=== PATIENT | female | born 1945 | race Caucasian/White ===

== ENCOUNTER 2020-09-22 02:58 | Outpatient (RCR) | payer MEDICARE, OTHER, SELFPAY ==
[2020-09-17] VITALS (7 sets, daily range): BP systolic 147–166; BP diastolic 70–85; PULSE 43–64; RESP 16–18; TEMP 36.5–37.1; O2SAT 96–98
[2020-09-17] MEDS: Normal Saline Flush 10 ML SYR IVP (11:09)
[2020-09-17] MEDS: Loratidine 10 MG TAB PO (11:09)
[2020-09-17] MEDS: Acetaminophen 325 MG TAB 650 MG PO (11:09)
[2020-09-17] MEDS: inFLIXimab 300 MG in Normal Saline 250 ML 125 MG IVPB (11:34)
[2020-09-22] VITALS (7 sets, daily range): BP systolic 121–162; BP diastolic 67–89; PULSE 52–70; RESP 12–20; TEMP 36.5–36.9; O2SAT 97–99
[2020-09-22] MEDS: Acetaminophen 325 MG TAB 650 MG PO (11:10)
[2020-09-22] MEDS: Loratidine 10 MG TAB PO (11:11)
[2020-09-22] MEDS: Normal Saline Flush 10 ML SYR IVP (11:11)
[2020-09-22] MEDS: inFLIXimab 300 MG in Normal Saline 250 ML 125 MG IVPB (11:39)
== END 2020-09-25 23:59 | disposition home or self-care (01) ==
LOC: INF 02:58
PROVIDERS: PCP Nurse Practitioner Family; Visit Provider Family Medicine
DX: K51.00 Ulcerative (chronic) pancolitis without complications (principal)
CPT/HCPCS: 96365; 96366; 96413; 96415; J1745

== ENCOUNTER 2020-10-01 11:00 | Outpatient (RCR) | payer MEDICARE, OTHER, SELFPAY ==
[2020-09-26 00:27] VITALS: BP 121/74; PULSE 69; RESP 12; TEMP 36.6
[2020-10-01] MEDS: Normal Saline Flush 10 ML SYR IVP (11:07)
[2020-10-01] MEDS: Acetaminophen 325 MG TAB 650 MG PO (11:11)
[2020-10-01] MEDS: Loratidine 10 MG TAB PO (11:11)
[2020-10-01 11:27] LABS: HGB 12.2 g/dL (11.2-15.7); MCH 24.9 pg (27.0-33.0); MCHC 30.5 % (32.0-36.0); MCV 81.8 fL (80-95); MPV 10.2 fL (8.0-11.0); Platelet Count 480 10^3/uL (130-400); RBC 4.89 10^6/uL (3.93-5.22); RDW 15.8 % (11.7-14.6); RDW-SD 46.7 fL
[2020-10-01] MEDS: inFLIXimab 300 MG in Normal Saline 250 ML 125 MG IVPB (11:29)
[2020-10-01 11:30] VITALS: BP 128/69; PULSE 52; RESP 16; TEMP 37.1; O2SAT 98
[2020-10-01 11:38] LABS: ALT 37 U/L (14-59); AST 19 U/L (15-37); Albumin 3.4 g/dL (3.4-5.0); Alkaline Phosphatase 51 U/L (46-116); Bilirubin, Direct 0.1 mg/dL (0.0-0.2); Bilirubin, Total 0.4 mg/dL (0.2-1.0); Total Protein 6.7 g/dL (6.4-8.2)
[2020-10-01 11:39] LABS: C-Reactive Protein < 0.05 mg/dL (0.0-0.3)
[2020-10-01 11:44] LABS: WBC 27.27 10^3/uL (4.4-10.8)
[2020-10-01 11:45] VITALS: BP 131/72; PULSE 57; RESP 16; TEMP 36.9; O2SAT 97
[2020-10-01 12:00] VITALS: BP 121/73; PULSE 59; RESP 16; TEMP 37; O2SAT 96
[2020-10-01 12:15] VITALS: BP 145/73; PULSE 65; RESP 16; TEMP 35.9; O2SAT 97
[2020-10-01 12:45] VITALS: BP 121/72; PULSE 65; RESP 16; TEMP 36.6; O2SAT 97
[2020-10-01 13:15] VITALS: BP 106/66; PULSE 71; RESP 16; TEMP 37.1; O2SAT 97
== END 2020-10-26 23:59 | disposition home or self-care (01) ==
LOC: INF 11:00
PROVIDERS: PCP Nurse Practitioner Family; Visit Provider Family Medicine
DX: K50.919 Crohn's disease, unspecified, with unspecified complications (principal)
CPT/HCPCS: 36415; 80076; 85027; 96365; 96366; 96413; 96415; 86140; J1745

== ENCOUNTER 2020-11-05 05:29 | Outpatient (RCR) | payer MEDICARE, OTHER, SELFPAY ==
[2020-10-27 00:12] VITALS: BP 106/66; PULSE 71; RESP 16; TEMP 37.1
[2020-10-29] MEDS: Normal Saline Flush 10 ML SYR IVP (11:21)
[2020-10-29] MEDS: Acetaminophen 325 MG TAB 650 MG PO (11:24)
[2020-10-29] MEDS: Loratidine 10 MG TAB PO (11:24)
[2020-10-29 11:26] VITALS: BP 138/66; PULSE 57; RESP 16; TEMP 36.2; O2SAT 98
[2020-10-29] MEDS: inFLIXimab 300 MG in Normal Saline 250 ML 125 MG IVPB (11:47)
[2020-10-29 12:13] VITALS: BP 128/69; PULSE 52; RESP 18; TEMP 36.1; O2SAT 98
[2020-10-29 12:31] VITALS: BP 150/73; PULSE 65; RESP 16; TEMP 36.4; O2SAT 99
[2020-10-29 12:41] VITALS: BP 133/77; PULSE 56; RESP 16; TEMP 36.4; O2SAT 99
[2020-10-29 12:55] VITALS: BP 116/61; PULSE 60; RESP 17; TEMP 35.9; O2SAT 97
[2020-10-29 13:25] VITALS: BP 114/67; PULSE 63; RESP 17; TEMP 36.1; O2SAT 98
[2020-11-05] MEDS: Acetaminophen 325 MG TAB 650 MG PO (10:47)
[2020-11-05] MEDS: Loratidine 10 MG TAB PO (10:47)
[2020-11-05] MEDS: Normal Saline Flush 10 ML SYR IVP (10:47)
[2020-11-05 10:50] VITALS: BP 149/69; PULSE 71; RESP 16; TEMP 36.3; O2SAT 99
[2020-11-05] MEDS: inFLIXimab 300 MG in Normal Saline 250 ML 125 MG IVPB (11:20)
[2020-11-05 11:40] VITALS: BP 145/76; PULSE 53; RESP 17; TEMP 36.5; O2SAT 97
[2020-11-05 11:55] VITALS: BP 131/66; PULSE 44; RESP 17; TEMP 36.2; O2SAT 98
[2020-11-05 12:10] VITALS: BP 157/86; PULSE 57; RESP 16; TEMP 36.3; O2SAT 97
[2020-11-05 12:25] VITALS: BP 164/78; PULSE 56; RESP 16; TEMP 36; O2SAT 97
[2020-11-05 13:01] VITALS: BP 120/70; PULSE 65; RESP 17; TEMP 36.4; O2SAT 96
== END 2020-11-25 23:59 | disposition home or self-care (01) ==
LOC: INF 05:29
PROVIDERS: PCP Nurse Practitioner Family; Visit Provider Family Medicine
DX: K50.919 Crohn's disease, unspecified, with unspecified complications (principal)
CPT/HCPCS: 96365; 96366; 96413; 96415; J1745

== ENCOUNTER 2020-12-14 11:00 | Outpatient (RCR) | payer MEDICARE, OTHER, SELFPAY ==
[2020-11-26 00:22] VITALS: BP 120/70; PULSE 65; RESP 17; TEMP 36.4
[2020-12-14] VITALS (7 sets, daily range): BP systolic 132–173; BP diastolic 65–84; PULSE 46–68; RESP 16–18; TEMP 36.2–36.7; O2SAT 96–98
[2020-12-14] MEDS: Acetaminophen 325 MG TAB 650 MG PO (11:10)
[2020-12-14] MEDS: Loratidine 10 MG TAB PO (11:10)
[2020-12-14] MEDS: Normal Saline Flush 10 ML SYR IVP (11:12)
[2020-12-14 11:33] LABS: HCT 40.1 % (36.0-46.0); HGB 12.3 g/dL (11.2-15.7); MCH 24.1 pg (27.0-33.0); MCHC 30.7 % (32.0-36.0); MCV 78.6 fL (80-95); MPV 10.5 fL (8.0-11.0); Platelet Count 551 10^3/uL (130-400); RDW 16.1 % (11.7-14.6); RDW-SD 46.2 fL; WBC 21.63 10^3/uL (4.4-10.8)
[2020-12-14] MEDS: inFLIXimab 600 MG in Normal Saline 250 ML 125 MG IVPB (11:35)
[2020-12-14 11:49] LABS: ALT 21 U/L (14-59); AST 11 U/L (15-37); Albumin 3.3 g/dL (3.4-5.0); Alkaline Phosphatase 54 U/L (46-116); Bilirubin, Direct < 0.1 mg/dL (0.0-0.2); Bilirubin, Total 0.3 mg/dL (0.2-1.0); C-Reactive Protein 0.16 mg/dL (0.0-0.3); Total Protein 6.9 g/dL (6.4-8.2)
== END 2020-12-26 23:59 | disposition home or self-care (01) ==
LOC: INF 11:00
PROVIDERS: PCP Nurse Practitioner Family; Visit Provider Family Medicine
DX: K50.919 Crohn's disease, unspecified, with unspecified complications (principal)
CPT/HCPCS: 36415; 80076; 85027; 96365; 96366; 96413; 96415; 86140; J1745

== ENCOUNTER 2021-01-11 08:42 | Outpatient (RCR) | payer MEDICARE, OTHER, SELFPAY ==
[2020-12-27 00:24] VITALS: BP 132/69; PULSE 68; RESP 18; TEMP 36.2
[2021-01-11] MEDS: Normal Saline Flush 10 ML SYR IVP (10:52)
[2021-01-11] MEDS: Acetaminophen 325 MG TAB 650 MG PO (10:52)
[2021-01-11] MEDS: Loratidine 10 MG TAB PO (10:52)
[2021-01-11 11:01] VITALS: BP 152/94; PULSE 60; RESP 16; TEMP 36.7; O2SAT 98
[2021-01-11] MEDS: inFLIXimab 600 MG in Normal Saline 250 ML 125 MG IVPB (11:29)
[2021-01-11 11:45] VITALS: BP 138/73; PULSE 60; RESP 18; TEMP 36.7; O2SAT 98
[2021-01-11 12:00] VITALS: BP 132/77; PULSE 58; RESP 16; TEMP 36.7; O2SAT 97
[2021-01-11 12:18] VITALS: BP 138/96; PULSE 62; RESP 17; TEMP 35.8; O2SAT 97
[2021-01-11 12:50] VITALS: BP 136/81; PULSE 71; RESP 17; TEMP 35.8; O2SAT 97
== END 2021-01-25 23:59 | disposition home or self-care (01) ==
LOC: INF 08:42
PROVIDERS: PCP Nurse Practitioner Family; Visit Provider Family Medicine
DX: K50.90 Crohn's disease, unspecified, without complications (principal); Z79.899 Other long term (current) drug therapy
CPT/HCPCS: 96365; 96366; 96413; 96415; J1745

== ENCOUNTER 2021-02-09 11:00 | Outpatient (RCR) | payer MEDICARE, OTHER, SELFPAY ==
[2021-01-26 00:07] VITALS: BP 136/81; PULSE 71; RESP 17; TEMP 35.8
[2021-02-09] MEDS: Loratidine 10 MG TAB PO (11:05)
[2021-02-09] MEDS: Acetaminophen 325 MG TAB 650 MG PO (11:05)
[2021-02-09] MEDS: Normal Saline Flush 10 ML SYR IVP (11:07)
[2021-02-09 11:13] VITALS: BP 161/68; PULSE 55; RESP 17; TEMP 36; O2SAT 95
[2021-02-09 11:15] LABS: HCT 42.1 % (36.0-46.0); HGB 12.6 g/dL (11.2-15.7); MCH 23.5 pg (27.0-33.0); MCHC 29.9 % (32.0-36.0); MCV 78.5 fL (80-95); MPV 10.1 fL (8.0-11.0); RBC 5.36 10^6/uL (3.93-5.22); RDW 16.2 % (11.7-14.6); RDW-SD 46.2 fL; WBC 19.54 10^3/uL (4.4-10.8)
[2021-02-09 11:32] LABS: ALT 28 U/L (14-59); AST 18 U/L (15-37); Albumin 3.5 g/dL (3.4-5.0); Alkaline Phosphatase 67 U/L (46-116); Bilirubin, Total 0.2 mg/dL (0.2-1.0); Total Protein 7.8 g/dL (6.4-8.2)
[2021-02-09 11:38] LABS: Platelet Count 771 10^3/uL (130-400)
[2021-02-09] MEDS: inFLIXimab 600 MG in Normal Saline 250 ML 125 MG IVPB (11:38)
[2021-02-09 11:40] LABS: Bilirubin, Direct 0.1 mg/dL (0.0-0.2); C-Reactive Protein 0.32 mg/dL (0.0-0.3)
[2021-02-09 11:58] VITALS: BP 142/84; PULSE 59; RESP 16; TEMP 36.1; O2SAT 98
[2021-02-09 12:14] VITALS: BP 116/68; PULSE 54; RESP 16; TEMP 36; O2SAT 96
[2021-02-09 12:31] VITALS: BP 116/64; PULSE 71; RESP 16; TEMP 36.3; O2SAT 96
[2021-02-09 12:48] VITALS: BP 164/71; PULSE 64; RESP 17; TEMP 36.4; O2SAT 96
[2021-02-09 13:18] VITALS: BP 172/89; PULSE 73; RESP 18; TEMP 36.2; O2SAT 97
== END 2021-02-25 23:59 | disposition home or self-care (01) ==
LOC: INF 11:00
PROVIDERS: PCP Nurse Practitioner Family; Visit Provider Family Medicine
DX: K50.90 Crohn's disease, unspecified, without complications (principal)
CPT/HCPCS: 36415; 80076; 85027; 96365; 96366; 96413; 96415; 86140; J1745

== ENCOUNTER 2021-02-09 13:31 | Emergency (ER) | payer MEDICARE, OTHER, SELFPAY ==
[2021-02-09] VITALS (41 sets, daily range): BP systolic 126–193; BP diastolic 61–138; PULSE 60–101; RESP 13–37; TEMP 36.6–37.6; O2SAT 82–95
--- NOTE | 2021-02-09 13:30 | DI.CT_ITS ---
Exam(s) CT THORAX ABDOMEN CTA EXAM: CT THORAX ABDOMEN CTA CLINICAL HISTORY: back and chest pain. TECHNIQUE: Imaging Protocol: Axial computed tomography images with coronal and sagittal reformatted images were created and reviewed CONTRAST MATERIAL: Intravenous: Omnipaque 350 Contrast volume:100 ml Oral: None COMPARISON: No exams were available for comparison FINDINGS: CHEST: AORTA: There is no evidence of aortic dissection nor pericardial effusion. Diameter of the ascending thoracic aorta is within normal limits. Diameter of the aortic arch is upper normal. Diameter of t he descending thoracic aorta is upper normal. There is no evidence of abdominal aortic aneurysm. No fusiform aneurysms in the iliac arteries. No tight stenosis nor dissection seen in the common visua lized external iliac arteries. The entire pelvis is not included in the field of view. Both interna l iliac arteries are patent. OSSEOUS: There is a mild height loss of T8 vertebral body, possibly mild compression fracture, age in determinate. No other compression fractures. There is mild anterolisthesis of L4 upon L5, this on a degenerative basis/facet arthropathy. There are no pars defects. LUNGS: No confluent infiltrates nor pleural effusions. No ominous pulmonary nodules. No pneumothora x.. MEDIASTINUM: There is no hilar nor mediastinal adenopathy. Visualized thyroid unremarkable. CARDIAC: Heart size upper normal. No pericardial effusion. No dissection. See above. AORTA: See above. ABDOMEN: There is no evidence of abdominal aortic aneurysm nor dissection.Celiac and superior mesenteric arter ies are patent. No tight ostial stenosis of these vessels. No evidence of embolus in the SMA. Infe rior mesenteric artery is also patent.There is no evidence of significant stenosis at the level of th e single bilateral renal arteries. There is no ascites. LIVER: There are no focal hepatic lesions nor dilatation of intrahepatic ducts. GALLBLADDER/BILIARY: Gallbladder surgically absent. CBD diameter is increased, consistent with the p atient's age and post cholecystectomy status. PANCREAS: No evidence of pancreatic mass nor dilatation of the pancreatic duct. Pancreas is difficult to evaluate accurately because of respiratory motion artifact. Pancreatic duct diameter is upper normal. There is no obvious pancreatic mass. SPLEEN: The spleen exhibits normal size. No splenic masses evident. ADRENALS: There are no significant adrenal masses. KIDNEYS: No cysts evident. No calculi nor hydronephrosis. No solid renal masses. ABDOMINAL AORTA: As above. Not enlarged. LYMPH NODES: There is no retroperitoneal nor para-aortic adenopathy. No obvious mesenteric masses. ABDOMINAL WALL: No evidence of significant anterior abdominal wall hernia. GI: No evidence of obvious bowel obstruction. No free air. Lowermost image of this study is midpelvic level. The entire pelvis is not included on this chest ab domen study. Uterus and ovaries are not included in the field of view. IMPRESSION: 1. No evidence of aortic aneurysm nor aortic dissection. No pericardial effusion. 2. There is a mild T8 vertebral body compression fracture, age indeterminate. No compromise of the c anal. No retropulsed fragments. Also noted is mild degenerative anterolisthesis L4 upon L5, this re lated to facet arthropathy. 3. Gallbladder surgically absent. Prominence of the CBD is most probably related to the patient's ag e and post cholecystectomy status. 4. Pancreas difficult to evaluate accurately because of respiratory motion artifact on this study. Findings discussed with ER physician. RADIATION DOSE DELIVERED: 615.37mGy.cm Total DLP DATA REPOSITORY: All CT scans at this facility are submitted to the National Radiology Data Registry (NRDR) Dose Index Registry (DIR) with the [employer] (A[employer]). RADIATION OPTIMIZATION: All CT scans at this facility use at least one of these dose optimization te chniques: automated exposure control; mA and/or kV adjustment per patient size (includes targeted exa ms where dose is matched to clinical indication); or iterative reconstruction.
--- NOTE | 2021-02-09 13:30 | RT.EKG_ITS ---
APPROVED REPORT Exam: Resting ECG Reason for Exam: chest pain Patient Location: E HR:100 bpm ECG Measurements Heart Rate 100 AXIS AL 182 P 73 QRSd 97 QRS -39 QT 363 T -12 QTc 467 Conclusion Sinus tachycardia...rate> 99 Left axis deviation...QRS axis (-30,-90) Anterior infarct, possibly acute...ST >0.15mV, upright T, V2-V5 sinus tachycardia at 100, borderline left axis, significant artifact present, possible ST elevation
[2021-02-09] MEDS: Normal Saline Flush 10 ML SYR IVP (13:39)
[2021-02-09 13:50] LABS: HCT 41.2 % (36.0-46.0); HGB 12.3 g/dL (11.2-15.7); MCH 23.3 pg (27.0-33.0); MCHC 29.9 % (32.0-36.0); MCV 78.2 fL (80-95); MPV 10.2 fL (8.0-11.0); Nucleated RBC 0 %; Platelet Count 674 10^3/uL (130-400); RBC 5.27 10^6/uL (3.93-5.22); RDW-SD 45.6 fL
[2021-02-09] MEDS: HYDROmorphone 2 MG/ML VIAL (13:53)
[2021-02-09] MEDS: Labetalol 100 MG/20 ML VIAL 20 MG IVP (13:53)
--- NOTE | 2021-02-09 14:02 | W.ED.GENAD ---
Discharge Plan Disposition Patient Disposition: HOME Condition: Stable Discharge Details Clinical Impression: Compression fracture, Muscle spasm Primary Care Provider: Donna Rodas ED Provider: Ryan Powell Home Meds and New Rx's Prescriptions: New cyclobenzaprine 5 mg tablet 5 mg PO BID PRN (Reason: muscle spasm) Qty: 14 RF: 0 Continued prednisone 20 mg tablet 10 mg PO BID RF: 0 atenolol 25 mg tablet 25 mg PO DAILY RF: 0 calcium-vitamin D3 250-50 mg-unit Tablet 1 tab PO DAILY RF: 0 Discharge Instructions Instructions: Vertebral Compression Fracture (ED), Muscle Spasm (ED) Additional Instructions: CTA of your chest and abdomen revealed incidental finding of chronic compression fracture of thoracic vertebrae #8. Please discuss this finding with your doctor in follow-up. Please contact your primary care physician to arrange follow-up. Return to the ER for any worsening or new concerning symptoms. Referrals: Donna Rodas [Primary Care Provider] - Discharge Data Discharge Date/Time-TO BE ENTERED AT DEPARTURE: 02/09/21 17:28 Medical Decision Making <Maru Powell MD - Last Filed: 02/14/21 09:14> Jessica Lima is a 75-year-old woman with a history of Crohn's disease who was receiving a Remicade infusion when she developed gradual onset severe low back pain radiating to the chest and neck. Now reporting severe pain and unable to do so secondary to pain. On exam patient is nontoxic-appearing but appears extremely uncomfortable. Benign cardiopulmonary exam. No apparent neurologic deficit, no abdominal tenderness to palpation. Given severity and distribution of pain concern for possible aortic pathology versus musculoskeletal pain versus acute coronary syndrome versus other. EKG obtained, IV in place. Plan for CTA thorax/abdomen, screening labs, telemetry, IV pain medication. Will monitor and reassess. Patient reports no improvement after 4 mg IV morphine. Will give 0.5 mg Dilaudid. Patient reports reduction in pain after Dilaudid. CTA resulted as negative for acute process per radiology. Labs reviewed, WBC 15, troponin negative. Patient reports feeling significantly improved after returning from CT scan. She denies any chest pain or neck pain, reports mild low back pain at this time. Unclear etiology of leukocytosis, possible stress reaction versus other. Plan for repeat troponin, will continue to monitor. Exam/history at this time not consistent with acute intra-abdominal process, pulmonary embolism, acute emergent vascular pathology, sepsis. Patient reports feeling completely pain-free and back to baseline. She has no symptoms at this time. I did discuss nonacute findings of CT with patient (T8 compression fracture, anterolisthesis and lumbar spine), discussed that these may be contributing to her reported prior history of low back pain/muscle spasms. Awaiting repeat troponin. Patient signed out to Dr. Ryan Powell at time of shift change with repeat lab, reassessment pending. Medical Records Medical records reviewed: Yes I reviewed the patient's medical records. Imaging Data Radiologic Study: Attestation: I personally reviewed and interpreted this imaging study as follows: Radiologist's impression: EXAM: CT THORAX ABDOMEN CTA CLINICAL HISTORY: back and chest pain. TECHNIQUE: Imaging Protocol: Axial computed tomography images with coronal and sagittal reformatted images were created and reviewed CONTRAST MATERIAL: Intravenous: Omnipaque 350 Contrast volume:100 ml Oral: None COMPARISON: No exams were available for comparison FINDINGS: CHEST: AORTA: There is no evidence of aortic dissection nor pericardial effusion. Diameter of the ascending thoracic aorta is within normal limits. Diameter of the aortic arch is upper normal. Diameter of the descending thoracic aorta is upper normal. There is no evidence of abdominal aortic aneurysm. No fusiform aneurysms in the iliac arteries. No tight stenosis nor dissection seen in the common visualized external iliac arteries. The entire pelvis is not included in the field of view. Both internal iliac arteries are patent. OSSEOUS: There is a mild height loss of T8 vertebral body, possibly mild compression fracture, age indeterminate. No other compression fractures. There is mild anterolisthesis of L4 upon L5, this on a degenerative basis/facet arthropathy. There are no pars defects. LUNGS: No confluent infiltrates nor pleural effusions. No ominous pulmonary nodules. No pneumothorax.. MEDIASTINUM: There is no hilar nor mediastinal adenopathy. Visualized thyroid unremarkable. CARDIAC: Heart size upper normal. No pericardial effusion. No dissection. See above. AORTA: See above. ABDOMEN: There is no evidence of abdominal aortic aneurysm nor dissection.Celiac and superior mesenteric arteries are patent. No tight ostial stenosis of these vessels. No evidence of embolus in the SMA. Inferior mesenteric artery is also patent.There is no evidence of significant stenosis at the level of the single bilateral renal arteries. There is no ascites. LIVER: There are no focal hepatic lesions nor dilatation of intrahepatic ducts. GALLBLADDER/BILIARY: Gallbladder surgically absent. CBD diameter is increased, consistent with the patient's age and post cholecystectomy status. PANCREAS: No evidence of pancreatic mass nor dilatation of the pancreatic duct. Pancreas is difficult to evaluate accurately because of respiratory motion artifact. Pancreatic duct diameter is upper normal. There is no obvious pancreatic mass. SPLEEN: The spleen exhibits normal size. No splenic masses evident. ADRENALS: There are no significant adrenal masses. KIDNEYS: No cysts evident. No calculi nor hydronephrosis. No solid renal masses. ABDOMINAL AORTA: As above. Not enlarged. LYMPH NODES: There is no retroperitoneal nor para-aortic adenopathy. No obvious mesenteric masses. ABDOMINAL WALL: No evidence of significant anterior abdominal wall hernia. GI: No evidence of obvious bowel obstruction. No free air. Lowermost image of this study is midpelvic level. The entire pelvis is not included on this chest abdomen study. Uterus and ovaries are not included in the field of view. IMPRESSION: 1. No evidence of aortic aneurysm nor aortic dissection. No pericardial effusion. 2. There is a mild T8 vertebral body compression fracture, age indeterminate. No compromise of the canal. No retropulsed fragments. Also noted is mild degenerative anterolisthesis L4 upon L5, this related to facet arthropathy. 3. Gallbladder surgically absent. Prominence of the CBD is most probably related to the patient's age and post cholecystectomy status. 4. Pancreas difficult to evaluate accurately because of respiratory motion artifact on this study. Lab Data Lab results reviewed: Yes I reviewed the patient's lab results. Labs: Laboratory Tests Range/Units 02/09/21 02/09/21 02/09/21 13:40 13:40 13:40 WBC (4.4-10.8) 10^3/uL 15.00 H RBC (3.93-5.22) 10^6/uL 5.27 H Hgb (11.2-15.7) g/dL 12.3 Hct (36.0-46.0) % 41.2 MCV (80-95) fL 78.2 L MCH (27.0-33.0) pg 23.3 L MCHC (32.0-36.0) % 29.9 L RDW (11.7-14.6) % 16.0 H Plt Count (130-400) 10^3/uL 674 H MPV (8.0-11.0) fL 10.2 Immature Gran % 0.0 Neutrophils % 81.0 Band Neutrophils % 2 Lymphocytes % 10.0 Atypical Lymphs % 4 Monocytes % 1.0 Eosinophils % 1.0 Basophils % 0.0 Metamyelocytes % 1 Nucleated RBC % % 0 Absolute Neutrophils (1.2-6.7) 10^3/uL 12.45 H Absolute Lymphocytes (1.2-3.4) 10^3/uL 2.10 Absolute Monocytes (0.1-0.8) 10^3/uL 0.15 Absolute Eosinophils (0.0-0.7) 10^3/uL 0.15 Absolute Basophils (0.0-0.2) 10^3/uL 0.00 RBC Morphology Normal PT (9.3-11.0) sec 9.7 INR (0.9-1.1) 1.0 Sodium (136-145) mmol/L 140 Potassium (3.5-5.1) mmol/L 4.6 Chloride (98-107) mmol/L 105 Carbon Dioxide (21.0-32.0) mmol/L 29.1 Anion Gap (3-11) mmol/L 5.9 BUN (7-18) mg/dL 14 Creatinine (0.55-1.02) mg/dL 0.9 Estimated GFR/1.73 m2 (mL/min/1.73m2) >= 60.00 Glucose (74-106) mg/dL 113 H Calcium (8.5-10.1) mg/dL 9.2 Total Bilirubin (0.2-1.0) mg/dL 0.3 AST (15-37) U/L 16 ALT (14-59) U/L 22 Alkaline Phosphatase (46-116) U/L 66 Troponin I (<or=60) ng/L < 50 Total Protein (6.4-8.2) g/dL 7.4 Albumin (3.4-5.0) g/dL 3.3 L Urine Color (Yellow) Urine Clarity (Clear) Urine pH (5-8) Ur Specific [place] (1.005-1.025) Urine Protein (Negative) mg/dL Urine Ketones (Negative) mg/dL Urine Blood (Negative) Urine Nitrite (Negative) Urine Bilirubin (Negative) Urine Urobilinogen (Up TO 0.2) EU/dL Ur Leukocyte Esterase (Negative) Urine RBC (0-2) HPF Urine WBC (0-5) HPF Ur Epithelial Cells (Negative) HPF Urine Crystals (Negative) HPF Urine Bacteria (Negative) HPF Urine Casts (Negative) LPF Urine Mucus (Negative) Urine Other (Negative) Ur Culture Indicated? Urine Glucose (Negative) mg/dL Patient ABO/Rh Antibody Screen Range/Units 02/09/21 02/09/21 02/09/21 13:50 16:29 17:30 WBC (4.4-10.8) 10^3/uL RBC (3.93-5.22) 10^6/uL Hgb (11.2-15.7) g/dL Hct (36.0-46.0) % MCV (80-95) fL MCH (27.0-33.0) pg MCHC (32.0-36.0) % RDW (11.7-14.6) % Plt Count (130-400) 10^3/uL MPV (8.0-11.0) fL Immature Gran % Neutrophils % Band Neutrophils % Lymphocytes % Atypical Lymphs % Monocytes % Eosinophils % Basophils % Metamyelocytes % Nucleated RBC % % Absolute Neutrophils (1.2-6.7) 10^3/uL Absolute Lymphocytes (1.2-3.4) 10^3/uL Absolute Monocytes (0.1-0.8) 10^3/uL Absolute Eosinophils (0.0-0.7) 10^3/uL Absolute Basophils (0.0-0.2) 10^3/uL RBC Morphology PT (9.3-11.0) sec INR (0.9-1.1) Sodium (136-145) mmol/L Potassium (3.5-5.1) mmol/L Chloride (98-107) mmol/L Carbon Dioxide (21.0-32.0) mmol/L Anion Gap (3-11) mmol/L BUN (7-18) mg/dL Creatinine (0.55-1.02) mg/dL Estimated GFR/1.73 m2 (mL/min/1.73m2) Glucose (74-106) mg/dL Calcium (8.5-10.1) mg/dL Total Bilirubin (0.2-1.0) mg/dL AST (15-37) U/L ALT (14-59) U/L Alkaline Phosphatase (46-116) U/L Troponin I (<or=60) ng/L < 50 Total Protein (6.4-8.2) g/dL Albumin (3.4-5.0) g/dL Urine Color (Yellow) Yellow Urine Clarity (Clear) Clear Urine pH (5-8) 5.5 Ur Specific [place] (1.005-1.025) 1.015 Urine Protein (Negative) mg/dL Negative Urine Ketones (Negative) mg/dL Negative Urine Blood (Negative) Trace-intact H Urine Nitrite (Negative) Negative Urine Bilirubin (Negative) Negative Urine Urobilinogen (Up TO 0.2) EU/dL 0.2 Ur Leukocyte Esterase (Negative) Negative Urine RBC (0-2) HPF Negative Urine WBC (0-5) HPF Negative Ur Epithelial Cells (Negative) HPF Negative Urine Crystals (Negative) HPF Negative Urine Bacteria (Negative) HPF Negative Urine Casts (Negative) LPF Negative Urine Mucus (Negative) Negative Urine Other (Negative) Negative Ur Culture Indicated? No Urine Glucose (Negative) mg/dL Negative Patient ABO/Rh A Positive Antibody Screen NEGATIVE ECG Data Attestation: I personally reviewed and interpreted this ECG (s) as follows: Interpretation: EKG shows sinus tachycardia at 100, borderline left axis, significant artifact present, possible ST elevation EKG shows sinus rhythm at 64, occasional PVC, borderline left axis, inferior and anterior Q waves, no STEMI <Ryan Powell MD - Last Filed: 02/12/21 08:31> Repeat trop negative. A medical screening exam was performed today. Patient is stable. Plan for discharge with outpatient follow-up. Usual customary discharge instructions were reviewed with the patient. HPI <Maru Powell MD - Last Filed: 02/14/21 09:14> General Mode of arrival: wheelchair. Date/Time Provider Initiated Documentation: 02/09/21 13:31. Limitations to Documentation: no limitations. Information obtained by: patient, RN notes reviewed and old records reviewed. HPI Narrative: Jessica Lima is a 75-year-old woman with history of Crohn's disease presenting to the emergency department with severe low back pain. Patient was receiving Remicade infusion at [facility] when she began to develop gradual onset pain in her low back that rapidly became severe. Patient reports that pain then began to radiate into her chest and neck. Patient rates pain as 10 out of 10, history somewhat limited patient writhing, moaning in pain. Patient states that she has had mild low back pain and back spasms in the past, but has never had pain similar to this. Patient reports that she he has received several Remicade infusions in the past without issue. She reports that she was previously in her usual state of health without symptoms. She denies pain other than in her lower back, chest and lower neck bilaterally. Denies fevers, cough, shortness of breath, numbness, weakness, rash, vomiting, diarrhea. Patient wheeled from infusion center at [facility] down to emergency department. Related Data Home Medications Medication Instructions Recorded Confirmed atenolol 25 mg PO DAILY 02/09/21 02/09/21 calcium-vitamin D3 1 tab PO DAILY 02/09/21 02/09/21 cyclobenzaprine 5 mg PO BID PRN #14 tab 02/09/21 prednisone 10 mg PO BID 02/09/21 02/09/21 Previous Rx's Medication Instructions Recorded cyclobenzaprine 5 mg PO BID PRN #14 tab 02/09/21 Allergies Allergy/AdvReac Type Severity Reaction Status Date / Time bee venom protein (honey bee) Allergy Severe Anaphylaxis Unverified 02/09/21 14:00 Latex, Natural Rubber Allergy Severe Skin Rash Unverified 02/09/21 14:00 seafood AdvReac Severe Other (See Uncoded 02/09/21 14:00 Comment) General Stated Complaint: Nk/Back Pain CODI: 2 Review of Systems <Maru Powell MD - Last Filed: 02/14/21 09:14> Narrative: Constitutional: denies fevers Eyes: denies eye pain ENT: denies ear pain, dental pain, sore throat Cardiovascular: denies edema, reports chest pain Respiratory: denies SOB, cough GI: denies abdominal pain, vomiting, diarrhea : denies flank pain MSK: denies arthralgias, myalgias, reports low back pain, neck pain Skin: denies rash Neuro: denies headaches, numbness, weakness PFS <Maru Powell MD - Last Filed: 02/14/21 09:14> All Active Problems Compression fracture (Acute) Muscle spasm (Acute) Social History Smoking risk assessment performed?: No Exam <Maru Powell MD - Last Filed: 02/14/21 09:14> Narrative Exam Narrative: Constitutional: Able to speak in full sentences, moaning/yelling in pain, unable to still in bed secondary to pain HENT: head atraumatic/normocephalic/normal inspection, mucous membranes moist Eyes: conjunctiva normal, sclera normal, pupils 3mm b/l Neck: no stridor, normal ROM, trachea midline Chest: normal inspection, nontender to palpation Resp: normal work of breathing, LCTAB Cardio: normal rate, normal rhythm, no murmur appreciated GI: abdomen soft, non-tender, non-distended Back: normal inspection, no rash, no tenderness to palpation Skin: warm, dry, normal color, no rash Neuro: alert, not altered, grossly non-focal, normal tone Ext: no edema, no posterior calf tenderness to palpation Course <Maru Powell MD - Last Filed: 02/14/21 09:14> Vital Signs Vital signs: Vital Signs Pulse 88 02/09/21 13:37 Respiratory Rate 23 02/09/21 13:37 Blood Pressure 164/138 H 02/09/21 13:37 Pulse Oximetry 82 L 02/09/21 13:37 Temperature 36.6 C 02/09/21 13:40 Temperature Source Skin 02/09/21 13:40 Pulse 82 02/09/21 13:51 Pulse 88 02/09/21 13:50 Respiratory Rate 27 H 02/09/21 13:50 Respiratory Effort 02/09/21 13:56 Blood Pressure 174/83 H 02/09/21 13:51 Blood Pressure Mean 106 02/09/21 13:51 Blood Pressure Position Supine 02/09/21 13:40 Pulse Oximetry 84 L 02/09/21 13:38 Oxygen Delivery Method Room Air 02/09/21 13:40 Oxygen Flow Rate 0 02/09/21 13:40 Pain Level 10 02/09/21 13:39 Sign Out <Maru Powell MD - Last Filed: 02/14/21 09:14> Sign Out Data: Sign Out Comment: Patient signed out to Dr. Ryan Powell with repeat opponent pending, anticipate discharge to home with Flexeril prescription, PT referral Last updated by Maru Powell MD at 02/09/21 16:18
[2021-02-09 14:05] LABS: Prothrombin Time 9.7 sec (9.3-11.0)
[2021-02-09] MEDS: Omnipaque 350 MG/ML 100 ML BTL IJ (14:06)
[2021-02-09 14:10] LABS: Absolute Eosinophil Count 0.15 10^3/uL (0.0-0.7); Absolute Monocyte Count 0.15 10^3/uL (0.1-0.8); Absolute Neutrophil Count 12.45 10^3/uL (1.2-6.7); Atypical Lymphocytes % 4; Bands % 2; Diff Comment Manual Differential; Metamyelocytes % 1; RBC Morphology Normal
[2021-02-09 14:13] LABS: ALT 22 U/L (14-59); AST 16 U/L (15-37); Albumin 3.3 g/dL (3.4-5.0); Alkaline Phosphatase 66 U/L (46-116); Anion Gap 5.9 mmol/L (3-11); BUN 14 mg/dL (7-18); Bilirubin, Total 0.3 mg/dL (0.2-1.0); CO2 29.1 mmol/L (21.0-32.0); CREATININE 0.9 mg/dL (0.55-1.02); Calcium 9.2 mg/dL (8.5-10.1); Chloride 105 mmol/L (98-107); Glucose 113 mg/dL (74-106); Potassium 4.6 mmol/L (3.5-5.1); Sodium 140 mmol/L (136-145); Total Protein 7.4 g/dL (6.4-8.2); Troponin I < 50 ng/L (<or=60)
--- OUTSIDE RECORDS SUMMARY | 2021-02-09 14:29 | XMS_ITS ---
:1945 Author Organization [facility] Address [address] [place] [address] Care Team Providers Name Role Phone Rodas Unavailable Unavailable PROBLEMS ALLERGIES ENCOUNTERS IMMUNIZATIONS SOCIAL HISTORY REASON FOR REFERRAL FUNCTIONAL STATUS PLAN OF CARE VITAL SIGNS MEDICATIONS PROCEDURES RESULTS REASON FOR VISIT Insurance Providers
--- NOTE | 2021-02-09 15:00 | RT.EKG_ITS ---
APPROVED REPORT Exam: Resting ECG Reason for Exam: back pain Patient Location: E HR:64 bpm ECG Measurements Heart Rate 64 AXIS GA 200 P 55 QRSd 98 QRS -31 QT 413 T 2 QTc 427 Conclusion Sinus rhythm...normal P axis, V-rate 60- 99 Ventricular premature complex...V complex w/ short R-R interval Inferior infarct, old...Q >35mS, II III aVF Anterior infarct, old...Q >40mS, abnormal ST-T, V2-V5 sinus rhythm at 64, occasional PVC, borderline left axis, inferior and anterior Q waves, no STEMI
[2021-02-09 16:56] LABS: Troponin I < 50 ng/L (<or=60)
[2021-02-09 17:40] LABS: Bilirubin Negative (Negative); Blood Trace-intact (Negative); Clarity Clear (Clear); Glucose Negative (Negative); Ketones Negative (Negative); Leukocyte Esterase Negative (Negative); Nitrite Negative (Negative); Specific Gravity 1.015 (1.005-1.025); Urobilinogen 0.2 EU/dL (Up TO 0.2); pH 5.5 (5-8)
[2021-02-09 17:53] LABS: Bacteria Negative HPF (Negative); C & S Indicated? No; Casts Negative LPF (Negative); Crystals Negative HPF (Negative); Epithelial Cells Negative HPF (Negative); Mucus Negative (Negative); Other Cells Negative (Negative); RBC Negative HPF (0-2); WBC Negative HPF (0-5)
== END 2021-02-09 17:28 | disposition home or self-care (01) ==
PROVIDERS: Student in an Organized Health Care Education/Training Program; Emergency Provider Student in an Organized Health Care Education/Training Program; PCP Nurse Practitioner Family
DX: M48.54XA Collapsed vertebra, not elsewhere classified, thoracic region, initial encounter for fracture (principal); R07.9 Chest pain, unspecified; M54.50 Low back pain, unspecified
CPT/HCPCS: 36415; 71275; 74175; 80053; 80076; 85027; 86850; 86900; 86901; 93005; 96365; 96366; 96374; 96375; 96413; 96415; 99285; 81003; 81015; 84484; 85025; 85610; 86140; 93010; 99284; J1745; J3490